=== PATIENT | female | born 1955 | race Caucasian/White ===

== ENCOUNTER 2024-05-18 08:02 | Outpatient (REF) | payer MEDICARE, OTHER, SELFPAY | END 2024-05-18 08:03 | disposition home or self-care (01) | LOC: HO.BBR 08:02 | PROVIDERS: PCP Internal Medicine; Visit Provider Internal Medicine | DX: D45 Polycythemia vera (principal) | CPT/HCPCS: 85014; 85018; 99195 ==

== ENCOUNTER 2024-11-10 13:46 | Outpatient (REF) | payer MEDICARE, OTHER, SELFPAY ==
--- OUTSIDE RECORDS SUMMARY | 2024-11-10 14:14 | XMS_ITS | Patient Health Record ---
Author Organization [facility] eddie Sharon Address [address] [place] [address] Care Team Providers Care Drycleaner Name Role Phone Steve Henning MD Primary Care Provider Unavailcharleen e Barbara Villaseñor Unavailable [phone] Allergies Allergen (clinical drug ingredient) Drug/Non Drug Allergy documented on EMR Reaction Allergy Type Onset Date Status sulfa hives Drug Allergy Active codeine Codeine hives Drug Allergy Active Reason For Referral No Information Medications Medication SIG (Take, Route, Fr equency, Duration) Notes Start Date End Date Status Work Note . . . .; Duration: . 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 Plan Of Treatment Pending Test Test Name Order Date [id number] Debride <25 sq cm 07/01/2012 [id number]- Shave Biopsy 0.6-1.0cm 06/15/2012 Insurance Providers Payer Name Payer Address Payer Phone Subscriber Number Group Number Insured Name Patient Relationship to Insured Coverage Start Date Coverage End Date [facility] [address] [place] [address] [phone] [id number] Capo Mejias Spouse - patient is the spouse of the insured [employer] [address] [place] [phone] [id number] Capo Mejias Spouse - patient is the spouse of the insured Medical (General) History Medical History History ICD Code headaches/migraines thyroid disorder measles mumps chicken pox
== END 2024-11-10 13:47 | disposition home or self-care (01) ==
LOC: HO.BBR 13:46
PROVIDERS: PCP Internal Medicine; Visit Provider Internal Medicine
DX: D45 Polycythemia vera (principal)
CPT/HCPCS: 85018; 99195

== ENCOUNTER 2025-02-08 13:48 | Outpatient (REF) | payer MEDICARE, OTHER, SELFPAY ==
--- OUTSIDE RECORDS SUMMARY | 2025-02-08 16:55 | XMS_ITS | Patient Health Record ---
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 Plan Of Treatment Pending Test Test Name Order Date [id number]- Debride <25 sq cm 07/01/2012 15894- Shave Biopsy 0.6-1.0cm 06/15/2012 Insurance Providers Payer Name Payer Address Payer Phone Subscriber Number Group Number Insured Name Patient Relationship to Insured Coverage Start Date Coverage End Date [facility] [address] [place] [address] [id number] Capo Mejias Spouse - patient is the spouse of the insured [employer] [address] [place] [phone] [id number] Capo Mejias Spouse - patient is the spouse of the insured Medical (General) History Medical History History ICD Code headaches/migraines thyroid disorder measles mumps chicken pox
== END 2025-02-08 13:49 | disposition home or self-care (01) ==
LOC: HO.BBR 13:48
PROVIDERS: PCP Internal Medicine; Visit Provider Internal Medicine
DX: D45 Polycythemia vera (principal)
CPT/HCPCS: 85018; 99195